=== PATIENT | male | born 1995 | race African-American/Black ===

== ENCOUNTER 2018-07-22 20:02 | Emergency (ER) | payer SELFPAY ==
[~2018-07-22] VITALS: Ht 190.5 cm; Wt 88.5 kg
[2018-07-22 20:11] VITALS: Ht 190.5 cm; Wt 88.5 kg
[2018-07-22 22:52] VITALS: BP 125/90
== END 2018-07-22 22:52 | disposition home or self-care (01) ==
LOC: ED 20:02
DX: S82.102A Unspecified fracture of upper end of left tibia, initial encounter for closed fracture (principal); V03.99XA Pedestrian with other conveyance injured in collision with car, pick-up truck or van, unspecified whether traffic or nontraffic accident, initial encounter; Y93.89 Activity, other specified; Y92.89 Other specified places as the place of occurrence of the external cause; Y99.8 Other external cause status
CPT/HCPCS: Q0092

== ENCOUNTER 2018-10-02 01:04 | Emergency (ER) | payer SELFPAY ==
[~2018-10-02] VITALS: Ht 190.5 cm; Wt 104.3 kg
[2018-10-02 01:15] VITALS: Ht 190.5 cm; Wt 104.3 kg
[2018-10-02 02:09] VITALS: BP 148/82
== END 2018-10-02 02:09 | disposition home or self-care (01) ==
LOC: ED 01:04
DX: M25.561 Pain in right knee (principal); X58.XXXA Exposure to other specified factors, initial encounter; Y93.89 Activity, other specified; Y92.89 Other specified places as the place of occurrence of the external cause; Y99.8 Other external cause status
CPT/HCPCS: Q0092